=== PATIENT | male | born 1990 | race Caucasian/White ===

== ENCOUNTER → 2021-01-29 09:00 | Outpatient (CLI) | payer OTHER, SELFPAY ==
[2021-01-28 10:41] VITALS: BMI 24.8
[2021-01-29 13:09] LABS: Absolute Lymphocyte Count 1.95 X10^3/uL (0.83-4.51); Absolute Neutrophil Count 2.8 X10^3/uL (2.0-7.7); Basophil# 0.07 X10^3/uL; Basophil% 1.3 % (0-1); Eosinophil# 0.34 X10^3/uL; Eosinophils% 6.1 % (0-5); Hematocrit 41.2 % (40-54); Hemoglobin 12.3 g/dL (13.0-16.5); Lymphocyte # 1.95 X10^3/ul (0.83-4.51); Lymphocyte % 34.9 % (19-41); Mean Corp Hgb Conc 29.9 g/dL (32-36); Mean Corpuscular Hgb 23.9 pg (27.0-32.0); Mean Corpuscular Volume 80.2 fL (80-94); Mean Platelet Vol. 9.9 fl (6.2-12.0); Monocyte# 0.39 X10^3/uL; NRBC Flagged by Analyzer 0 % (0-5); Neutrophil # 2.82 X10^3/uL (2.7-7.7); Neutrophil % 50.5 % (47-70); Platelet Count 344 K/mm3 (150-450); RBC Distribution Width CV 15.6 % (11.6-14.6); RBC Distribution Width SD 44.7 fl (35.1-43.9); Red Blood Count 5.14 M/mm3 (4.6-6.2); White Blood Count 5.6 K/mm3 (4.4-11.0)
[2021-01-29 13:24] LABS: Vitamin D,25 Hydroxy 11.4 ng/mL
[2021-01-29 13:27] LABS: ALB/GLOB Ratio 1.2 RATIO (0.9-2.4); AST(SGOT) 15 U/L (15-37); Alanine Aminotransfer ALT/SGPT 21 U/L (16-61); Albumin, Serum 4.1 g/dL (3.2-5.0); Alkaline Phosphatase 56 U/L (45-117); Anion Gap 2 (5-15); BUN 15 mg/dL (7-18); BUN/Creat Ratio 14.2 RATIO (10-20); Calcium,Total 8.7 mg/dL (8.5-10.1); Chloride 107 mmol/L (98-107); Cholesterol 162 mg/dL (200); Creatinine, Serum 1.06 mg/dL (0.70-1.30); EST Glomerular Filtration Rate 87 mL/min (>60); Est Glom Filt Rate - Afr Amer 105 mL/min (>60); Globulin 3.5 g/dL (2.2-4.2); Glucose 87 mg/dL (74-106); High Density Lipoprotein 50 mg/dL; Iron 46 ug/dL (65-175); Iron Binding Capacity,Total 478 ug/dL (250-450); PERCENT IRON SATURATION 9.6 % (15.0-55.0); Potassium 4.1 mmol/L (3.5-5.1); Protein, Total 7.6 g/dL (6.4-8.2); Sodium Level 140 mmol/L (136-145); Triglycerides 63 mg/dL; Very Low Density Lipoprotein 13 mg/dL (5-40)
[2021-01-29 13:29] LABS: Hemoglobin A1c 5.3 % (3.8-5.6)
== END ==
PROVIDERS: Visit Provider Internal Medicine
DX: D64.9 Anemia, unspecified (principal); E61.1 Iron deficiency; Z13.220 Encounter for screening for lipoid disorders; Z13.1 Encounter for screening for diabetes mellitus
CPT/HCPCS: 36415; 80053; 80061; 82306; 83036; 83540; 83550; 85025

== ENCOUNTER → 2021-01-30 | Outpatient (CLI) | payer OTHER, SELFPAY ==
[2021-01-28 10:41] VITALS: BMI 24.8
== END | disposition home or self-care (01) ==
LOC: LABSPEC 11:31
PROVIDERS: PCP Internal Medicine; Referring Provider Internal Medicine; Visit Provider Internal Medicine
DX: D64.9 Anemia, unspecified (principal); E61.1 Iron deficiency
CPT/HCPCS: 82274

== ENCOUNTER 2021-02-23 10:19 | Day surgery (SDC) | payer OTHER, SELFPAY ==
[2021-02-10 08:25] VITALS: BMI 24.8
[2021-02-23] VITALS (8 sets, daily range): BP systolic 98–139; BP diastolic 54–76; PULSE 61–78; RESP 16; TEMP 36.3–37.1; O2SAT 94–98; BMI 24.0
--- NOTE | 2021-02-23 10:47 | HP.PCM_ITS ---
History and Physical Date of Admission: 02/23/21 Intake Vital Signs 02/10/21 08:24 02/10/21 08:25 Height 5 ft 10 in Weight: 165 lb BMI 23.6 24.8 BP 125/77 H Blood Pressure Location Rt brachial Position Sitting Respiration 16 Intake Visit Reasons: ANEMIA, POSSIBLE CSCOPE Chief Complaint: anemia,possible scopes House Wirer Helper Required: No Is patient in pain?: No Allergies ant Allergy (Severe, Uncoded 02/10/21 08:25) anaphylaxis Medications ferrous sulfate 325 mg (65 mg iron) tablet 325 mg PO BID #60 tab 02/02/21 [Rx Confirmed 02/10/21] PFSH Medical History Anemia Fx metacarpal Low iron Seasonal allergies Family History Mother Alcoholism Grandmother Breast cancer Grandfather Heart disease Atrial fibrillation CVA (cerebral vascular accident) Myocardial infarction Social History Smoking Status: Never smoker alcohol intake: current alcohol intake frequency: holidays/special occasions only substance use type: does not use what type of physical activity do you participate in: running HPI HPI HPI: JERRICA RUDD, is a 30 M who presents to the office today for iron deficiency anemia. The patient does not report any gross blood in the stool and fecal occult blood was negative. He is not having any abdominal pain. He has no family history of colon cancer. ROS General General: No weight change, appetite, fatigue, colon cancer, breast cancer or wea kness HEENT HEENT: No difficulty swallowing, eye injury, eye surgery, swollen glands or hoarseness Endo Endocrine: No thyroid disease, diabetes mellitus, thyroid cancer, Hair loss, heat intolerance or cold intolerance Skin Skin: No rash or changing moles Breast Breast: No left breast lump, right breast lump, nipple discharge, breast pain, abnormal mammogram, abnormal US or breast enlargement Musc Musculoskeletal: No back problems, arthritis, rheumatoid arthritis, gout or joint pain Cardio Cardiovascular: No murmur, pacemaker, heart disease, atrial fibrillation, high blood pressure, heart attack, heart stent, palpitations, shortness of breat with exertion or chest pain Psych Psychiatric: No depression, anxiety or hearing voices Resp Respiratory: No shortness of breath, No sleep apnea, No cough, No COPD, No asthma, No emphysema and No wheezing Gastro Gastrointestinal: No abdominal pain, No nausea or vomiting, No diarrhea, No constipation, No blood in stool, No acid reflux, No hemorrhoids, No ulcers, No gallbladder problem and No black,tarry stools En Hematologic: No blood thinners, No blood disorders, No bleeding, Yes anemia and No blood clots Neuro Neurologic: No system reviewed and no additional complaints, except as documented, No as per HPI, No abnormal gait, No abnormal hearing, No abnormal movements, No abnormal speech, No behavioral changes, No burning sensations, No confusion, No convulsions, No disequilibrium, No dizziness, No localized weakness, No frequent falls, No headache(s), No lack of coordination, No loss of vision, No memory loss, No numbness, No other visual disturbances, No radicular pain, No restless legs, No sensory deficit, No syncope, No tingling, No tremor(s), No weakness and No other Exam Const General: cooperative Orientation: alert and oriented x3 HENMT Head: normal to inspection Neck Neck: normal visual inspection and full ROM Chest Chest palpation & inspection: normal inspection of the chest Resp Effort & Inspection: normal respiratory effort Auscultation: clear to auscultation bilaterally Cardio Rate: regular rate Rhythm: regular rhythm GI Inspection: non-distended Palpation: soft and nontender Skin General: no rashes or lesions noted Neuro General: patient alert and patient oriented x3 Extrem General: full ROM Psych Appearance: grossly normal Mental Status: mental status grossly normal Assessment and Plan Assessment and Plan (1) Anemia: Status: Acute Qualifiers: Anemia type: iron deficiency Iron deficiency anemia type: unspecified iron deficiency Qualified Code(s): D50.9 - Iron deficiency anemia, unspecified (2) Low iron: Status: Acute Orders: Orders: Colonoscopy Today E61.1 EGD Today E61.1 Plan - Dr. Ziggy Kan MD: Patient has iron deficiency anemia and was sent for EGD and colonoscopy. I explained endoscopy in detail to the patient. I explained the risks including but not limited to stroke or heart attack with anesthesia, perforation of the GI tract, bleeding, infection. I explained that any of these could necessitate further emergency surgery. The patient understands and all questions were answered sufficiently. The patient wishes to proceed with procedure. Ziggy Kan MD Pager: [facility] [address] [place] [address], [address] [place] [address] Office: I have re-examined the patient. There are no clinical changes since date of exam.
[2021-02-23] MEDS: Lactated Ringers 1,000 ML 100 ML IV (10:54)
--- NOTE | 2021-02-23 11:22 | OP.EGD_ITS ---
Patient Name: José Luis Jones Procedure Date: 02/23/2021 10:53 AM Date of : 1990 Age: 30 Procedure: Upper GI endoscopy Indications: Iron deficiency anemia Providers: Ziggy Kan MD Referring MD: Ziggy Kan MD Medicines: Monitored Anesthesia Care Patient Profile: This is a 30 year old male. Refer to note in patient chart for documentation of history and physical. Complications: No immediate complications. Procedure: Pre-Anesthesia Assessment: - Prior to the procedure, a History and Physical was performed, and patient medications and allergies were reviewed. The patient's tolerance of previous anesthesia was also reviewed. The risks and benefits of the procedure and the sedation options and risks were discussed with the patient. All questions were answered, and informed consent was obtained. Prior Anticoagulants: The patient has taken no previous anticoagulant or antiplatelet agents. After reviewing the risks and benefits, the patient was deemed in satisfactory condition to undergo the procedure. After obtaining informed consent, the endoscope was passed under direct vision. Throughout the procedure, the patient's blood pressure, pulse, and oxygen saturations were monitored continuously. The gastroscope was introduced through the mouth, and advanced to the second part of duodenum. The upper GI endoscopy was accomplished without difficulty. The patient tolerated the procedure well. Scope In: 11:05:18 AM Scope Out: 11:07:16 AM Total Procedure Duration Time 0 hours 1 minute 58 seconds Findings: The esophagus was normal. The stomach was normal. The examined duodenum was normal. Biopsies were taken with a cold forceps in the gastric antrum for Helicobacter pylori testing. Impression: - Normal esophagus. - Normal stomach. - Normal examined duodenum. - Biopsies were taken with a cold forceps for Helicobacter pylori testing. Recommendation: - Discharge patient to home (ambulatory). - Resume previous diet. - Continue present medications. Procedure Code(s): --- Professional --- 61560, Esophagogastroduodenoscopy, flexible, transoral; with biopsy, single or multiple Diagnosis Code(s): --- Professional --- D50.9, Iron deficiency anemia, unspecified CPT copyright 2017 [employer]. All rights reserved. The codes documented in this report are preliminary and upon supervisor photoengraving review may be revised to meet current compliance requirements. Ziggy Kan MD 02/23/2021 11:22:31 AM This report has been signed electronically. Number of Addenda: 0 Note Initiated On: 02/23/2021 10:53 AM
--- NOTE | 2021-02-23 11:22 | OP.CCLET_ITS ---
02/23/2021 Niesha Mckeon [facility] [address] [place] [address] Re : Upper GI endoscopy procedure for José Luislesa Jones Dear Dr. Mckeon This procedure was performed on Tuesday, February 23, 2021. My impressions and recommendations are as follows: Impressions : - Normal esophagus. - Normal stomach. - Normal examined duodenum. - Biopsies were taken with a cold forceps for Helicobacter pylori testing. Recommendations : - Discharge patient to home (ambulatory). - Resume previous diet. - Continue present medications. My findings are described in the full procedure note, which is enclosed. If I can be of further assistance, please feel free to contact me at Doctor phone number(s): , Work: . Sincerely, Ziggy Kan MD 02/23/2021 11:22:31 AM This report has been signed electronically.
--- NOTE | 2021-02-23 11:23 | OP.COLON_ITS ---
Patient Name: José Luis Jones Procedure Date: 02/23/2021 11:07 AM Date of : 1990 Age: 30 Procedure: Colonoscopy Indications: Iron deficiency anemia Providers: Ziggy Kan MD Referring MD: Ziggy Kan MD Medicines: Monitored Anesthesia Care Patient Profile: This is a 30 year old male. Refer to note in patient chart for documentation of history and physical. Last Colonoscopy: none. The patient's first colonoscopy is today. Complications: No immediate complications. Procedure: Pre-Anesthesia Assessment: - Prior to the procedure, a History and Physical was performed, and patient medications and allergies were reviewed. The patient's tolerance of previous anesthesia was also reviewed. The risks and benefits of the procedure and the sedation options and risks were discussed with the patient. All questions were answered, and informed consent was obtained. Prior Anticoagulants: The patient has taken no previous anticoagulant or antiplatelet agents. After reviewing the risks and benefits, the patient was deemed in satisfactory condition to undergo the procedure. After I obtained informed consent, the scope was passed under direct vision. Throughout the procedure, the patient's blood pressure, pulse, and oxygen saturations were monitored continuously. The colonoscope was introduced through the anus and advanced to the cecum, identified by appendiceal orifice and ileocecal valve. The colonoscopy was performed without difficulty. The patient tolerated the procedure well. The quality of the bowel preparation was good. Scope In: 11:10:30 AM Scope Withdrawal Time 0 hours 6 minutes 1 second Scope Out: 11:20:04 AM Total Procedure Duration Time 0 hours 9 minutes 34 seconds Findings: The entire examined colon appeared normal on direct and retroflexion views. Impression: - The entire examined colon is normal on direct and retroflexion views. - No specimens collected. Recommendation: - Discharge patient to home. - Resume previous diet. - Continue present medications. - Repeat colonoscopy at age 49 for screening purposes. Procedure Code(s): --- Professional --- 50414, Colonoscopy, flexible; diagnostic, including collection of specimen(s) by brushing or washing, when performed (separate procedure) Diagnosis Code(s): --- Professional --- D50.9, Iron deficiency anemia, unspecified CPT copyright 2017 [employer]. All rights reserved. The codes documented in this report are preliminary and upon industrial servicer review may be revised to meet current compliance requirements. Ziggy Kan MD 02/23/2021 11:23:40 AM This report has been signed electronically. Number of Addenda: 0 Note Initiated On: 02/23/2021 11:07 AM
--- NOTE | 2021-02-23 11:24 | OP.CCLET_ITS ---
02/23/2021 Niesha Mckeon [facility] [address] [place] [address] Re : Colonoscopy procedure for José Luis Jones Dear Dr. Mckeon This procedure was performed on Tuesday, February 23, 2021. My impressions and recommendations are as follows: Impressions : - The entire examined colon is normal on direct and retroflexion views. - No specimens collected. Recommendations : - Discharge patient to home. - Resume previous diet. - Continue present medications. - Repeat colonoscopy at age 49 for screening purposes. My findings are described in the full procedure note, which is enclosed. If I can be of further assistance, please feel free to contact me at Doctor phone number(s): , Work: . Sincerely, Ziggy Kan MD 02/23/2021 11:23:40 AM This report has been signed electronically.
--- NOTE | 2021-02-23 12:00 | IMM_PTH ---
PATIENT: JERRICA RUDD LOC: EN U#:[id number] AGE/SX: 30/M ROOM: RE02/23/[address]: Dr. Ziggy Kan MD : 1990 BED: DIS: 02/23/2021 SPEC #: [id number] RECD: 02/23/21 14:38 STATUS: TRISTON REJana #: [id number] SARAH: 02/23/21 12:[address]: Ziggy Kan DEPT: IMMUNOHISTOCHEMISTRY RECD BY: Calli Jara ENTERED: 02/23/21 14:39 SP TYPE: IMMUNO OTHR DR: Dr. Niesha Mckeon MD Tissues: Stomach, NOS Procedures: H Pylori (initial) PHYSICIAN & INSTITUTION [place] [address] SPECIMEN INFORMATION: Tissue Source: Antrum biopsy Clinical Info: Anemia, low iron Specimen Number: [id number] CPT code: 07985 METHODOLOGY: Deparaffinized sections of prefer/formalin-fixed tissue or PAP/DQ stained slides are incubated with monoclonal/polyclonal antibodies/oligonucleotide probes. Localization is made via biotin free immunoperoxidase method. Appropriate controls are performed and reacted as expected. Results on target cell population are indicated in the following table: RESULTS: ANTIBODY / CLONE RESULT H Pylori (polyclonal) negative These tests were developed and their performance characteristics determined by [facility]. They may not have been cleared or approved by the U.S. Food and Drug Administration. The FDA has determined that such clearance or approval is not necessary. INTERPRETATION: Antrum biopsy: Negative for Helicobacter pylori organisms. AM:glenny 02/24/2021
--- NOTE | 2021-02-23 12:00 | EGD_PTH ---
PATIENT: JERRICA RUDD LOC: EN U#:[id number] AGE/SX: 30/M ROOM: RE02/23/[address]: Dr. Ziggy Kan MD : 1990 BED: DIS: 02/23/2021 SPEC #: [id number] RECD: 02/23/21 12:36 STATUS: TRISTON MORGANJana #: [id number] SARAH: 02/23/21 12:[address]: Ziggy Kan DEPT: SURGICAL PATHOLOGY RECD BY: Sylvia Mackenzie ENTERED: 02/23/21 13:05 SP TYPE: EGD BIOPSY OT DR: Dr. Niesha Mckeon MD Tissues: Gastric mucous membrane Procedures: Surgery Specimen Level IV HEADER OPERATION: Colonoscopy, E[place] [place] PRE-OP DIAGNOSIS: Anemia, low iron TISSUE SUBMITTED: Antrum biopsy for H. pylori and path MICROSCOPIC DIAGNOSIS Gastric antrum, biopsy: Mild chronic gastritis. See comment. AM:glenny 02/24/2021 COMMENT The results of immunohistochemistry for Helicobacter pylori will be reported separately ([id number]). MICROSCOPIC DESCRIPTION Slides are reviewed. GROSS DESCRIPTION Received in fixative is one container labeled with the patient's name and designated antrum biopsy. The specimen consists of two irregular fragments of light rogers soft tissue that in aggregate measure 0.6 x 0.2 x 0.1 cm. The specimen is totally submitted in one cassette. / SJ:glenny 02/23/21 TC:3 CPT: 27490
== END 2021-02-23 12:34 ==
LOC: EN 10:19 → AC 10:27
PROVIDERS: PCP Internal Medicine; Referring Provider Surgery; Visit Provider Surgery
PROC: 0DJD8ZZ Inspection of Lower Intestinal Tract, Via Natural or Artificial Opening Endoscopic (ICD-10-PCS; CPT 45378; principal; 2021-02-23 11:55)
DX: D50.9 Iron deficiency anemia, unspecified (principal); Z79.899 Other long term (current) drug therapy
CPT/HCPCS: 43239; 45378; 88305; 88342; J7120